=== PATIENT | male | born 1930 | race Caucasian/White ===

== ENCOUNTER 2018-02-04 07:07 | Observation (INO) | payer MEDICARE, BC ==
[2018-02-04] MEDS ORDERED: Aspirin 81 MG Tab.Chew PO ONE (07:13)
[2018-02-04] MEDS ORDERED: Sodium Chloride 0.9% 1,000 ML IV SCH (07:15)
--- NOTE | 2018-02-04 07:15 | EDM.PDOC ---
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 Past medical history: As per history of present illness and as reviewed below otherwise noncontributory. Surgical history: As per history of present illness and as reviewed below otherwise noncontributory. Social history: No reported history of drug or alcohol abuse. Family history: As per history of present illness and as reviewed below otherwise noncontributory. Physical exam: HEENT: Atraumatic, normocephalic, pupils reactive, negative for conjunctival pallor or scleral icterus, mucous membranes moist, throat clear, neck supple, nontender, trachea midline. Lungs: Clear to auscultation, breath sounds equal bilaterally, chest nontender. Heart: S1S2, regular, negative for clicks, rubs, or JVD. Abdomen: Soft, nondistended, nontender. Negative for masses or hepatosplenomegaly. Negative for costovertebral tenderness. Pelvis: Stable nontender. Genitourinary: Deferred. Rectal: Deferred. Extremities: Atraumatic, negative for cords or calf pain. Neurovascular unremarkable. Neuro: Awake, alert, oriented. Cranial nerves II through XII unremarkable. Cerebellum unremarkable. Motor and sensory unremarkable throughout. Exam nonfocal. Diagnostics: [CBC CMP and cardiac enzymes lipase EKG Chest 1 view ] Therapeutics: [ liter normal saline Aspirin 324 mg chewable ] Lopressor 5 mg IV Impression: [Atypical chest pain Definitive disposition and diagnosis as appropriate pending reevaluation and review of above. - Related Data Allergies Allergy/AdvReac Type Severity Reaction Status Date / Time chloramphenicol sod succ Allergy Unknown Hallucinati Verified 06/20/14 00:20 [From Chloromycetin] ons chloramphenicol Allergy Hallucinati Verified 03/20/14 10:44 [From Chloromycetin] ons Home Meds: Home Meds Glimepiride 0.5 tab PO DAILY 02/04/18 [History] Metoprolol Tartrate [Lopressor] 50 mg PO DAILY 02/04/18 [History] atorvaSTATin [Lipitor] 10 mg PO DAILY 02/04/18 [History] metFORMIN [Glucophage XR] 500 mg PO BIDMEALS 02/04/18 [History] ED ROS GENERAL - Review of Systems Review Of Systems: See Below ED EXAM, GENERAL - Physical Exam Exam: See Below Course - Vital Signs Last Recorded V/S: Last Vital Signs Temp 97.9 F 02/04/18 07:14 Pulse 87 02/04/18 07:34 Resp 18 02/04/18 07:14 BP 188/92 H 02/04/18 07:34 Pulse Ox 93 L 02/04/18 07:14 - Orders/Labs/Meds Orders: Active Orders 24 hr Category Date Time Status EKG Documentation Completion [RC] STAT Care 02/04/18 07:15 Active Chest 1V Frontal [CR] Stat Exams 02/04/18 07:15 Ordered UA W/MICROSCOPIC [URIN] Stat Lab 02/04/18 07:14 Ordered Sodium Chloride 0.9% [Normal Saline] 1,000 ml Med 02/04/18 07:15 Active IV STAT Medication Orders Sodium Chloride (Normal Saline) 1,000 mls @ 125 mls/hr IV STAT IMAN Last Infusion: 02/04/18 07:30 Dose: 50 mls/hr Admin: 02/04/18 07:28 Dose: 125 mls/hr Labs: Laboratory Tests 02/04/18 02/04/18 02/04/18 Range/Units 07:18 07:18 07:30 WBC 11.25 H (4.0-11.0) K/uL RBC 4.75 (4.50-5.90) M/uL Hgb 13.6 (13.0-17.0) g/dL Hct 41.3 (38.0-50.0) % MCV 86.9 (80.0-98.0) fL MCH 28.6 (27.0-32.0) pg MCHC 32.9 (31.0-37.0) g/dL RDW Std Deviation 46.0 (28.0-62.0) fl RDW Coeff of Holly 15 (11.0-15.0) % Plt Count 167 (150-400) K/uL MPV 10.40 (7.40-12.00) fL Neut % (Auto) 61.0 (48.0-80.0) % Lymph % (Auto) 31.3 (16.0-40.0) % [place] % (Auto) 6.5 (0.0-15.0) % Eos % (Auto) 1.1 (0.0-7.0) % Baso % (Auto) 0.1 (0.0-1.5) % Neut # (Auto) 6.9 H (1.4-5.7) K/uL Lymph # (Auto) 3.5 H (0.6-2.4) K/uL [place] # (Auto) 0.7 (0.0-0.8) K/uL Eos # (Auto) 0.1 (0.0-0.7) K/uL Baso # (Auto) 0.0 (0.0-0.1) K/uL Nucleated RBC % 0.0 /100WBC Nucleated RBCs # 0 K/uL Sodium 141 (136-148) mmol/L Potassium 3.8 (3.5-5.1) mmol/L Chloride 105 (98-107) mmol/L Carbon Dioxide 25.2 (21.0-32.0) mmol/L BUN 27 H (7.0-18.0) mg/dL Creatinine 1.1 (0.8-1.3) mg/dL Est Cr Clr Drug Dosing 42.56 mL/min Estimated GFR (MDRD) > 60.0 ml/min Glucose 122 H (74-106) mg/dL POC Glucose 116 H (60-110) mg/dL Calcium 9.1 (8.5-10.1) mg/dL Total Bilirubin 0.6 (0.2-1.0) mg/dL AST 20 (15-37) IU/L ALT 24 (14-63) IU/L Alkaline Phosphatase 71 (46-116) U/L Creatine Kinase 126 (26-308) U/L CK-MB (CK-2) 4.3 H (0-3.6) ng/mL Troponin I < 0.050 (0.000-0.056) ng/mL Total Protein 7.0 (6.4-8.2) g/dL Albumin 3.7 (3.4-5.0) g/dL Globulin 3.3 (2.0-3.5) g/dL Albumin/Globulin Ratio 1.1 L (1.3-2.8) Lipase 77 (73-393) U/L Meds: Medications Generic Name Dose Route Start Last Admin Trade Name Freq PRN Reason Stop Dose Admin Sodium Chloride 1,000 mls @ 125 mls/hr 02/04/18 07:15 02/04/18 07:30 Normal Saline IV 50 mls/hr STAT IMAN Infusion Discontinued Medications Generic Name Dose Route Start Last Admin Trade Name Marquezq PRN Reason Stop Dose Admin Aspirin 324 mg 02/04/18 07:13 02/04/18 07:25 Aspirin PO 02/04/18 07:14 324 mg ONETIME ONE Administration Metoprolol Tartrate 5 mg 02/04/18 07:30 02/04/18 07:34 Lopressor IVPUSH 02/04/18 07:41 5 mg Q5M IMAN Administration Departure - Departure Time of Disposition: 08:14 Disposition: Refer to Observation Condition: Fair Clinical Impression: Atypical chest pain - Discharge Information Referrals: Shanice Gibbs, [employer] [Primary Care Provider] - Forms: ED Department Discharge - My Orders Last 24 Hours: My Active Orders 02/04/18 07:14 UA W/MICROSCOPIC [URIN] Stat 02/04/18 07:15 EKG Documentation Completion [RC] STAT Chest 1V Frontal [CR] Stat Sodium Chloride 0.9% [Normal Saline] 1,000 ml IV STAT - Assessment/Plan Last 24 Hours: My Active Orders 02/04/18 07:14 UA W/MICROSCOPIC [URIN] Stat 02/04/18 07:15 EKG Documentation Completion [RC] STAT Chest 1V Frontal [CR] Stat Sodium Chloride 0.9% [Normal Saline] 1,000 ml IV STAT
[2018-02-04] MEDS: Metoprolol Tartrate 5 MG/5 ML SDV IVPUSH SCH ×3 (07:34→09:00)
[2018-02-04 08:02] LABS: CHLORIDE,CL 105 mmol/L (98-107); SODIUM,NA 141 mmol/L (136-148)
[2018-02-04] MEDS ORDERED: Pneumococcal Polyvalent-23 Vaccine 0.5 ML SDV IM ONE (09:23)
[2018-02-04] MEDS ORDERED: Metoprolol Tartrate 50 MG Tab PO SCH (11:45)
[2018-02-04] MEDS ORDERED: Clopidogrel 75 MG Tab PO ONE (13:40)
--- NOTE | 2018-02-04 13:51 | PCM.HP ---
H&P History of Present Illness - General Admit Problem/Dx: Admission Diagnosis/Problem Admission Diagnosis/Problem Atypical chest pain - History of Present Illness Initial Comments - Free Text/Narative: 88 yo male with pmh of dementia and CAD s/p one stent. He presented this morning with complaint of heart palpitations. He was evaluated in the ED and EKG showed sinur rhythm with rate of 98 bpm. His blood pressure was 188/92. He did received ASA 325mg and IV Lopressor 5mg. His chest complaint has resolved and due to his dementia he has already forgotten about it. Family that is here with him do not want any agressive measures but are willing to keep him here overnight. - Related Data Allergies/Adverse Reactions: Allergies Allergy/AdvReac Type Severity Reaction Status Date / Time chloramphenicol sod succ Allergy Unknown Hallucinati Verified 06/20/14 00:20 [From Chloromycetin] ons chloramphenicol Allergy Hallucinati Verified 03/20/14 10:44 [From Chloromycetin] ons Home Medications: Home Meds Glimepiride 0.5 tab PO DAILY 02/04/18 [History] Metoprolol Tartrate [Lopressor] 50 mg PO DAILY 02/04/18 [History] atorvaSTATin [Lipitor] 10 mg PO DAILY 02/04/18 [History] metFORMIN [Glucophage XR] 500 mg PO BIDMEALS 02/04/18 [History] Past Medical History HEENT History: Reports: Cataract Cardiovascular History: Reports: Stents Genitourinary History: Reports: Other (See Below) Other Genitourinary History: prostate surgery over 20 years ago Neurological History: Reports: TIA Endocrine/Metabolic History: Reports: Diabetes, Type II Oncologic (Cancer) History: Reports: Other (See Below) Other Oncologic History: hx of skin CA on nose Dermatologic History: Reports: Other (See Below) Other Dermatologic History: hx of skin cancer on nose - Infectious Disease History Infectious Disease History: Reports: Chicken Pox Social & Family History - Family History Family Medical History: Noncontributory - Tobacco Use Smoking Status *Q: Never Smoker Second Hand Smoke Exposure: No - Caffeine Use Caffeine Use: Reports: Coffee, Soda - Recreational Drug Use Recreational Drug Use: No H&P Review of Systems - Review of Systems: Review Of Systems: ROS reveals no pertinent complaints other than HPI. Exam - Exam Exam: See Below - Vital Signs Vital Signs: Last Vital Signs Temp 37.0 C 02/04/18 12:30 Pulse 94 02/04/18 12:39 Resp 16 02/04/18 12:30 BP 165/101 H 02/04/18 12:39 Pulse Ox 94 L 02/04/18 12:30 Weight: 73 kg - Exam General: Alert, Oriented Lungs: Clear to Auscultation, Normal Respiratory Effort Cardiovascular: Regular Rate, Regular Rhythm GI/Abdominal Exam: Soft, Non-Tender, No Distention Extremities: Non-Tender, No Pedal Edema Skin: Warm, Dry, Intact - Patient Data Lab Results Last 24 hrs: Laboratory Results - last 24 hr 02/04/18 02/04/18 02/04/18 Range/Units 07:18 07:18 07:30 WBC 11.25 H (4.0-11.0) K/uL RBC 4.75 (4.50-5.90) M/uL Hgb 13.6 (13.0-17.0) g/dL Hct 41.3 (38.0-50.0) % MCV 86.9 (80.0-98.0) fL MCH 28.6 (27.0-32.0) pg MCHC 32.9 (31.0-37.0) g/dL RDW Std Deviation 46.0 (28.0-62.0) fl RDW Coeff of Holly 15 (11.0-15.0) % Plt Count 167 (150-400) K/uL MPV 10.40 (7.40-12.00) fL Neut % (Auto) 61.0 (48.0-80.0) % Lymph % (Auto) 31.3 (16.0-40.0) % [place] % (Auto) 6.5 (0.0-15.0) % Eos % (Auto) 1.1 (0.0-7.0) % Baso % (Auto) 0.1 (0.0-1.5) % Neut # (Auto) 6.9 H (1.4-5.7) K/uL Lymph # (Auto) 3.5 H (0.6-2.4) K/uL [place] # (Auto) 0.7 (0.0-0.8) K/uL Eos # (Auto) 0.1 (0.0-0.7) K/uL Baso # (Auto) 0.0 (0.0-0.1) K/uL Nucleated RBC % 0.0 /100WBC Nucleated RBCs # 0 K/uL Sodium 141 (136-148) mmol/L Potassium 3.8 (3.5-5.1) mmol/L Chloride 105 (98-107) mmol/L Carbon Dioxide 25.2 (21.0-32.0) mmol/L BUN 27 H (7.0-18.0) mg/dL Creatinine 1.1 (0.8-1.3) mg/dL Est Cr Clr Drug Dosing 42.56 mL/min Estimated GFR (MDRD) > 60.0 ml/min Glucose 122 H (74-106) mg/dL POC Glucose 116 H (60-110) mg/dL Calcium 9.1 (8.5-10.1) mg/dL Total Bilirubin 0.6 (0.2-1.0) mg/dL AST 20 (15-37) IU/L ALT 24 (14-63) IU/L Alkaline Phosphatase 71 (46-116) U/L Creatine Kinase 126 (26-308) U/L CK-MB (CK-2) 4.3 H (0-3.6) ng/mL Troponin I < 0.050 (0.000-0.056) ng/mL Total Protein 7.0 (6.4-8.2) g/dL Albumin 3.7 (3.4-5.0) g/dL Globulin 3.3 (2.0-3.5) g/dL Albumin/Globulin Ratio 1.1 L (1.3-2.8) Lipase 77 (73-393) U/L Urine Color Urine Appearance Urine pH (5.0-8.0) Ur Specific [place] (1.001-1.035) Urine Protein (NEGATIVE) mg/dL Urine Glucose (UA) (NEGATIVE) mg/dL Urine Ketones (NEGATIVE) mg/dL Urine Occult Blood (NEGATIVE) Urine Nitrite (NEGATIVE) Urine Bilirubin (NEGATIVE) Urine Urobilinogen (<2.0) EU/dL Ur Leukocyte Esterase (NEGATIVE) Urine RBC (0-2/HPF) Urine WBC (0-5/HPF) Ur Epithelial Cells (NONE-FEW) Urine Bacteria (NEGATIVE) 02/04/18 02/04/18 02/04/18 Range/Units 08:33 12:00 12:38 WBC (4.0-11.0) K/uL RBC (4.50-5.90) M/uL Hgb (13.0-17.0) g/dL Hct (38.0-50.0) % MCV (80.0-98.0) fL MCH (27.0-32.0) pg MCHC (31.0-37.0) g/dL RDW Std Deviation (28.0-62.0) fl RDW Coeff of Holly (11.0-15.0) % Plt Count (150-400) K/uL MPV (7.40-12.00) fL Neut % (Auto) (48.0-80.0) % Lymph % (Auto) (16.0-40.0) % [place] % (Auto) (0.0-15.0) % Eos % (Auto) (0.0-7.0) % Baso % (Auto) (0.0-1.5) % Neut # (Auto) (1.4-5.7) K/uL Lymph # (Auto) (0.6-2.4) K/uL [place] # (Auto) (0.0-0.8) K/uL Eos # (Auto) (0.0-0.7) K/uL Baso # (Auto) (0.0-0.1) K/uL Nucleated RBC % /100WBC Nucleated RBCs # K/uL Sodium (136-148) mmol/L Potassium (3.5-5.1) mmol/L Chloride (98-107) mmol/L Carbon Dioxide (21.0-32.0) mmol/L BUN (7.0-18.0) mg/dL Creatinine (0.8-1.3) mg/dL Est Cr Clr Drug Dosing mL/min Estimated GFR (MDRD) ml/min Glucose (74-106) mg/dL POC Glucose 136 H (60-110) mg/dL Calcium (8.5-10.1) mg/dL Total Bilirubin (0.2-1.0) mg/dL AST (15-37) IU/L ALT (14-63) IU/L Alkaline Phosphatase (46-116) U/L Creatine Kinase (26-308) U/L CK-MB (CK-2) (0-3.6) ng/mL Troponin I 0.102 H* (0.000-0.056) ng/mL Total Protein (6.4-8.2) g/dL Albumin (3.4-5.0) g/dL Globulin (2.0-3.5) g/dL Albumin/Globulin Ratio (1.3-2.8) Lipase (73-393) U/L Urine Color YELLOW Urine Appearance CLEAR Urine pH 5.5 (5.0-8.0) Ur Specific [place] 1.015 (1.001-1.035) Urine Protein 30 (NEGATIVE) mg/dL Urine Glucose (UA) NEGATIVE (NEGATIVE) mg/dL Urine Ketones NEGATIVE (NEGATIVE) mg/dL Urine Occult Blood TRACE-INTACT (NEGATIVE) Urine Nitrite NEGATIVE (NEGATIVE) Urine Bilirubin NEGATIVE (NEGATIVE) Urine Urobilinogen 0.2 (<2.0) EU/dL Ur Leukocyte Esterase NEGATIVE (NEGATIVE) Urine RBC 0-3 (0-2/HPF) Urine WBC 0-2 (0-5/HPF) Ur Epithelial Cells FEW (NONE-FEW) Urine Bacteria RARE (NEGATIVE) Result Diagrams: 02/04/18 07:18 02/04/18 07:18 Problem List Initiated/Reviewed/Updated: Yes Orders Last 24hrs: Active Orders 24 hr Category Date Time Status Admission Status [Patient Status] [ADT] Stat ADT 02/04/18 08:15 Active EKG Documentation Completion [RC] STAT Care 02/04/18 07:15 Active Telemetry Monitoring [Cardiac Monitoring] [RC] . Care 02/04/18 09:30 Active DIRECTED [employer] [place] Diet [DIET] Diet 02/04/18 Lunch Active Chest 1V Frontal [CR] Stat Exams 02/04/18 07:15 Taken TROPONIN I [CHEM] Q6H Lab 02/04/18 19:00 Ordered UA W/MICROSCOPIC [URIN] Stat Lab 02/04/18 08:33 Ordered Clopidogrel [Plavix] Med 02/04/18 13:40 Once 300 mg PO ONETIME ONE Clopidogrel [Plavix] Med 02/05/18 09:00 Ordered 75 mg PO DAILY Enoxaparin [Lovenox] Med 02/04/18 13:45 Ordered 70 mg SUBCUT Q12H Insulin Aspart [NovoLOG] Med 02/04/18 17:00 Active See Protocol SUBCUT TIDAC Metoprolol Tartrate [Lopressor] Med 02/04/18 11:45 Active 50 mg PO DAILY atorvaSTATin [Lipitor] Med 02/04/18 21:00 Ordered 40 mg PO BEDTIME Medication Orders Clopidogrel Bisulfate (Plavix) 300 mg PO ONETIME ONE Stop: 02/04/18 13:41 Clopidogrel Bisulfate (Plavix) 75 mg PO DAILY IMAN Enoxaparin Sodium (Lovenox) 70 mg SUBCUT Q12H IMAN Insulin Aspart (Novolog) 0 unit SUBCUT TIDAC [facility]; Protocol Metoprolol Tartrate (Lopressor) 50 mg PO DAILY [facility] Last Admin: 02/04/18 12:39 Dose: 50 mg Assessment/Plan Comment:: 88 yo male who presents with chest pain. His second set of troponin john to .102. NSTEMI/unstable angina: treating with ASA, Metoprolol, plavix and lovenox, family wants to avoid heparin drip due to his dementia. Family is not wanting aggressive care and as patient does not like being in the hospital they may be considering discharge home tomorrow with continued palliative care. DM: on sliding scale insulin.
[2018-02-04] MEDS: Enoxaparin 100 MG/1 ML Syringe SUBCUT SCH (13:58)
[2018-02-04] MEDS: Metoprolol Tartrate 50 MG Tab PO SCH (17:24)
[2018-02-04] MEDS: Insulin Aspart 100 Units/ML 3 ML Pen SUBCUT SCH (17:25)
[2018-02-04] MEDS ORDERED: Lisinopril 10 MG Tab PO ONE (18:43)
[2018-02-04] MEDS ORDERED: atorvaSTATin 40 MG Tab PO SCH (21:00)
[2018-02-05] MEDS: Enoxaparin 100 MG/1 ML Syringe SUBCUT SCH (01:18)
[2018-02-05] MEDS: Insulin Aspart 100 Units/ML 3 ML Pen SUBCUT SCH (06:30)
[2018-02-05] MEDS: Metoprolol Tartrate 50 MG Tab PO SCH (08:55)
[2018-02-05] MEDS ORDERED: Clopidogrel 75 MG Tab PO SCH (09:00)
--- NOTE | 2018-02-05 09:09 | PCM.DCSUM1 ---
Discharge Summary - Discharge Data Discharge Date: 02/05/18 Discharge Disposition: Home, Self-Care 01 Condition: Good - Patient Summary/Data Consults: Consultations 02/05/18 08:57 Consult to Home Health [CONS] Routine Hospital Course: 88 yo male with pmh of dementia and CAD s/p one stent. He presented with complaint of heart palpitations and chest discomfort. He was evaluated in the ED and EKG showed sinus rhythm with rate of 98 bpm. His blood pressure was 188/ 92. He did received ASA 325mg and IV Lopressor 5mg. His chest complaint has resolved and due to his dementia he is unable to give details regarding it. He was placed in observation and he did bump his troponin to as high as 1.69. He was treated for possible NSTEMI/unstable angina with lovenox, ASA, and loaded with plavix. His metoprolol was increased to twice a day and lisinopril was added for blood pressure control. Overnight patient did have some agitation. Family is not wanting aggressive measures and want to take the patient home to avoid further agitation. He was discharged home and family will be staying with him and they may decided on Stu placement at a later date. - Patient Instructions Diet: Heart Healthy Diet, Diabetic Diet - Discharge Plan Prescriptions/Med Rec: Aspirin [Ecotrin] 325 mg PO DAILY #30 tab.ec atorvaSTATin [Lipitor] 40 mg PO BEDTIME #30 tablet Clopidogrel [Plavix] 75 mg PO DAILY #30 tablet Lisinopril 10 mg PO DAILY #30 tablet Metoprolol Tartrate [Lopressor] 50 mg PO BID #60 tablet Home Medications: Home Meds Glimepiride 0.5 tab PO DAILY 02/04/18 [History] metFORMIN [Glucophage XR] 500 mg PO BIDMEALS 02/04/18 [History] Aspirin [Ecotrin] 325 mg PO DAILY #30 tab.ec 02/05/18 [Rx] Clopidogrel [Plavix] 75 mg PO DAILY #30 tablet 02/05/18 [Rx] Lisinopril 10 mg PO DAILY #30 tablet 02/05/18 [Rx] Metoprolol Tartrate [Lopressor] 50 mg PO BID #60 tablet 02/05/18 [Rx] atorvaSTATin [Lipitor] 40 mg PO BEDTIME #30 tablet 02/05/18 [Rx] Forms: ED Department Discharge Referrals: Shanice Gibbs NP [Primary Care Provider] - - Patient Data Vitals - Most Recent: Last Vital Signs Temp 36.2 C 02/05/18 04:00 Pulse 64 02/05/18 08:55 Resp 15 02/05/18 04:00 BP 123/60 02/05/18 08:55 Pulse Ox 95 02/05/18 04:00 Weight - Most Recent: 73 kg I&O - Last 24 hours: Intake & Output 02/04/18 02/05/18 02/05/18 22:59 06:59 14:59 Intake Total 400 300 Output Total 400 1000 Balance 0 -700 Lab Results - Last 24 hrs: Laboratory Results - last 24 hr 02/04/18 02/04/18 02/04/18 Range/Units 12:00 12:38 16:41 WBC (4.0-11.0) K/uL RBC (4.50-5.90) M/uL Hgb (13.0-17.0) g/dL Hct (38.0-50.0) % MCV (80.0-98.0) fL MCH (27.0-32.0) pg MCHC (31.0-37.0) g/dL RDW Std Deviation (28.0-62.0) fl RDW Coeff of Holly (11.0-15.0) % Plt Count (150-400) K/uL MPV (7.40-12.00) fL Neut % (Auto) (48.0-80.0) % Lymph % (Auto) (16.0-40.0) % [place] % (Auto) (0.0-15.0) % Eos % (Auto) (0.0-7.0) % Baso % (Auto) (0.0-1.5) % Neut # (Auto) (1.4-5.7) K/uL Lymph # (Auto) (0.6-2.4) K/uL [place] # (Auto) (0.0-0.8) K/uL Eos # (Auto) (0.0-0.7) K/uL Baso # (Auto) (0.0-0.1) K/uL Nucleated RBC % /100WBC Nucleated RBCs # K/uL Sodium (136-148) mmol/L Potassium (3.5-5.1) mmol/L Chloride (98-107) mmol/L Carbon Dioxide (21.0-32.0) mmol/L BUN (7.0-18.0) mg/dL Creatinine (0.8-1.3) mg/dL Est Cr Clr Drug Dosing mL/min Estimated GFR (MDRD) ml/min Glucose (74-106) mg/dL POC Glucose 136 H 144 H (60-110) mg/dL Calcium (8.5-10.1) mg/dL Troponin I 0.102 H* (0.000-0.056) ng/mL 02/04/18 02/05/18 02/05/18 Range/Units 19:02 06:05 07:20 WBC 8.41 (4.0-11.0) K/uL RBC 4.24 L (4.50-5.90) M/uL Hgb 12.1 L (13.0-17.0) g/dL Hct 37.1 L (38.0-50.0) % MCV 87.5 (80.0-98.0) fL MCH 28.5 (27.0-32.0) pg MCHC 32.6 (31.0-37.0) g/dL RDW Std Deviation 47.0 (28.0-62.0) fl RDW Coeff of Holly 15 (11.0-15.0) % Plt Count 157 (150-400) K/uL MPV 10.50 (7.40-12.00) fL Neut % (Auto) 72.8 (48.0-80.0) % Lymph % (Auto) 16.8 (16.0-40.0) % [place] % (Auto) 8.9 (0.0-15.0) % Eos % (Auto) 1.4 (0.0-7.0) % Baso % (Auto) 0.1 (0.0-1.5) % Neut # (Auto) 6.1 H (1.4-5.7) K/uL Lymph # (Auto) 1.4 (0.6-2.4) K/uL [place] # (Auto) 0.8 (0.0-0.8) K/uL Eos # (Auto) 0.1 (0.0-0.7) K/uL Baso # (Auto) 0.0 (0.0-0.1) K/uL Nucleated RBC % 0.0 /100WBC Nucleated RBCs # 0 K/uL Sodium (136-148) mmol/L Potassium (3.5-5.1) mmol/L Chloride (98-107) mmol/L Carbon Dioxide (21.0-32.0) mmol/L BUN (7.0-18.0) mg/dL Creatinine (0.8-1.3) mg/dL Est Cr Clr Drug Dosing mL/min Estimated GFR (MDRD) ml/min Glucose (74-106) mg/dL POC Glucose 125 H (60-110) mg/dL Calcium (8.5-10.1) mg/dL Troponin I 0.169 H* (0.000-0.056) ng/mL 02/05/18 Range/Units 07:20 WBC (4.0-11.0) K/uL RBC (4.50-5.90) M/uL Hgb (13.0-17.0) g/dL Hct (38.0-50.0) % MCV (80.0-98.0) fL MCH (27.0-32.0) pg MCHC (31.0-37.0) g/dL RDW Std Deviation (28.0-62.0) fl RDW Coeff of [place] (11.0-15.0) % Plt Count (150-400) K/uL MPV (7.40-12.00) fL Neut % (Auto) (48.0-80.0) % Lymph % (Auto) (16.0-40.0) % [place] % (Auto) (0.0-15.0) % Eos % (Auto) (0.0-7.0) % Baso % (Auto) (0.0-1.5) % Neut # (Auto) (1.4-5.7) K/uL Lymph # (Auto) (0.6-2.4) K/uL [place] # (Auto) (0.0-0.8) K/uL Eos # (Auto) (0.0-0.7) K/uL Baso # (Auto) (0.0-0.1) K/uL Nucleated RBC % /100WBC Nucleated RBCs # K/uL Sodium 142 (136-148) mmol/L Potassium 3.8 (3.5-5.1) mmol/L Chloride 107 (98-107) mmol/L Carbon Dioxide 30.8 (21.0-32.0) mmol/L BUN 33 H (7.0-18.0) mg/dL Creatinine 1.2 (0.8-1.3) mg/dL Est Cr Clr Drug Dosing 40.38 mL/min Estimated GFR (MDRD) 57.0 ml/min Glucose 122 H (74-106) mg/dL POC Glucose (60-110) mg/dL Calcium 8.5 (8.5-10.1) mg/dL Troponin I 0.126 H* (0.000-0.056) ng/mL Med Orders - Current: Current Medications Atorvastatin Calcium (Lipitor) 40 mg PO BEDTIME [facility] Last Admin: 02/04/18 21:14 Dose: 40 mg Clopidogrel Bisulfate (Plavix) 75 mg PO DAILY [facility] Last Admin: 02/05/18 08:54 Dose: 75 mg Enoxaparin Sodium (Lovenox) 70 mg SUBCUT Q12H [facility] Last Admin: 02/05/18 01:18 Dose: 70 mg Insulin Aspart (Novolog) 0 unit SUBCUT TIDAC [facility]; Protocol Last Admin: 02/05/18 06:30 Dose: Not Given Metoprolol Tartrate (Lopressor) 50 mg PO BIDMEALS [facility] Last Admin: 02/05/18 08:55 Dose: 50 mg Discontinued Medications Aspirin (Aspirin) 324 mg PO ONETIME ONE Stop: 02/04/18 07:14 Last Admin: 02/04/18 07:25 Dose: 324 mg Clopidogrel Bisulfate (Plavix) 300 mg PO ONETIME ONE Stop: 02/04/18 13:41 Last Admin: 02/04/18 13:58 Dose: 300 mg Sodium Chloride (Normal Saline) 1,000 mls @ 125 mls/hr IV STAT [facility] Last Infusion: 02/04/18 07:30 Dose: 50 mls/hr Lisinopril (Prinivil) 10 mg PO ONETIME ONE Stop: 02/04/18 18:44 Last Admin: 02/04/18 19:35 Dose: 10 mg Metoprolol Tartrate (Lopressor) 5 mg IVPUSH Q5M [facility] Stop: 02/04/18 07:41 Last Admin: 02/04/18 09:00 Dose: Not Given Metoprolol Tartrate (Lopressor) 50 mg PO DAILY [facility] Last Admin: 02/04/18 12:39 Dose: 50 mg Pneumococcal Polyvalent Vaccine (Pneumovax 23) 0.5 ml IM .ONCE ONE Stop: 02/04/18 09:24
--- NOTE | 2018-02-06 08:52 | CR ---
EXAM DATE: 02/04/18 PATIENT'S AGE: 88 Patient: MARY GARCIA Facility: [place], [place] Site . Site : [id number] Study: XRay Chest [id number]/2/2018 12:23:06 PM Ordering Physician: Doctor Cummings Final Report: INDICATION: Pain. Shortness of breath. COMPARISON: None. FINDINGS: A portable AP view of the chest was obtained. The cardiac silhouette is enlarged. The pulmonary vasculature is within normal limits. There is atelectasis in the right lung base. There is a faint infiltrate in the right upper lung. The left lung is clear. IMPRESSION: 1. Faint infiltrate right upper lung. 2. Left lung base atelectasis. Dictated by Bhupendra Bey MD @ 02/04/2018 12:47:20 PM Dictated by: Bhupendra Bey MD @ 02/04/2018 12:47:30 (Electronic Signature) Report Signed by Proxy. [email or web address]
== END 2018-02-05 10:20 | disposition home or self-care (01) ==
LOC: MW.ED 07:07 → MW.MS 08:15 → UNDOADMOB 08:23 → MW.MS 08:23
PROVIDERS: ADMIT Internal Medicine; ATTEND Internal Medicine
DX: R07.9 Chest pain, unspecified (principal); F03.90 Unspecified dementia, unspecified severity, without behavioral disturbance, psychotic disturbance, mood disturbance, and anxiety; E11.9 Type 2 diabetes mellitus without complications; I25.10 Atherosclerotic heart disease of native coronary artery without angina pectoris; Z95.5 Presence of coronary angioplasty implant and graft; Z79.899 Other long term (current) drug therapy; Z79.84 Long term (current) use of oral hypoglycemic drugs; Z79.82 Long term (current) use of aspirin; Z79.02 Long term (current) use of antithrombotics/antiplatelets; Z88.8 Allergy status to other drugs, medicaments and biological substances; Z86.73 Personal history of transient ischemic attack (TIA), and cerebral infarction without residual deficits; Z85.828 Personal history of other malignant neoplasm of skin
CPT/HCPCS: 36415; 71045; 80048; 80053; 81001; 82550; 82553; 82962; 83690; 84484; 85025; 93005; 96361; 96374; 99285; A9270; J1650; J7040; 96372; 96376; G0378